=== PATIENT | female | born 1950 | race Caucasian/White ===

== ENCOUNTER → 2017-08-08 | Day surgery (SDC) | payer OTHER ==
[2017-08-05 13:27] LABS: BASOPHILS # (AUTO) 0.1 (0.0-0.1); BASOPHILS % 0.8 % (0.0-1.0); EOSINOPHILS # (AUTO) 0.1 (0.0-0.4); EOSINOPHILS % 0.7 % (0.0-6.0); HEMATOCRIT 39.7 % (34.2-44.1); HEMOGLOBIN 13.5 g/dL (12.0-16.0); LYMPHOCYTES # (AUTO) 2.4 (1.0-3.2); LYMPHOCYTES % 32.1 % (18.0-39.1); MEAN CORPUSCULAR HEMOGLOBIN 31.4 pg (28-32); MEAN CORPUSCULAR VOLUME 92.3 fL (81-99); MONOCYTES # (AUTO) 0.5 (0.2-0.8); MONOCYTES % 7.3 % (4.4-11.3); NEUTROPHILS # (AUTO) 4.3 (2.1-6.9); NEUTROPHILS % 58.8 % (38.7-80.0); PLATELET COUNT 281 x10e3/uL (140-360); RED CELL DISTRIBUTION WIDTH 12.4 % (11.7-14.4)
--- NOTE | 2017-08-05 13:50 | Diagnostic Imaging Report ---
PROCEDURE: Frontal and lateral views of the chest. COMPARISON: None. INDICATIONS: PREOP - TAILBONE CYST REMOVAL FINDINGS: Lines/tubes: None. Lungs: The lungs are well inflated and clear. There is no evidence of pneumonia or pulmonary edema. Pleura: There is no pleural effusion or pneumothorax. Heart and mediastinum: The heart and the mediastinum are normal. Bones: No acute bony abnormality. IMPRESSION: No acute cardiopulmonary disease. Dictated by: Rafa Dawkins M.D. on 08/05/2017 at 13:51 Electronically approved by: Rafa Dawkins M.D. on 08/05/2017 at 13:51
[~2017-08-08] MED LIST: ASPIR 8181 MG PO; ATORVASTATIN CA10 MG PO; ATORVASTATIN CA20 MG PO; ATROPINE SULFATE 1 MG/ML VIAL ONE; BUPIVACAINE 0.5%/EPI 30 ML SDV INJ ONE; CALCIUM CARBON500 MG PO; CEFAZOLIN SOD 2 GM/D5W 50ML 50 ML IV ONE; CENTRUM COMPLE1 EACH PO; CINNAMON500 MG PO; CO Q1060 MG PO; DEXAMETHASONE SOD PHOS INJ 4 MG/ML VIAL ONE; FENTANYL CITRATE/PF 100MCG/2 ML INJ ONE; KETOROLAC TROMETHAMINE 30 MG/ML VIAL ONE; KRILL OIL500 MG PO; LIDOCAINE HCL 2% LOCAL INJ 5 ML SDV VIAL INJ ONE; MIDAZOLAM HCL 2 MG/2 ML VIAL ONE; NEOSTIGMINE 5 MG/5ML SYR ONE; ONDANSETRON HCL INJ 2 MG/ML VIAL ONE; PANTOPRAZOLE SO40 MG PO; POTASSIUM PO; PROPOFOL IV EMULSION 10 MG/ML 20 ML VIAL ONE; ROCURONIUM BROMIDE 10 MG/ML 5ML VIAL ONE; SEVOFLURANE INHAL SOLN 250 ML PEN BTL ONE; VIT B12 PO
--- OUTSIDE RECORDS SUMMARY | 2017-08-08 05:29 | XMS REPORT ---
Author Author [facility] [place] [facility] Address Unknown Phone Unavailable Care Team Providers Care Co Founder And Chief Strategy Officer Name Role Phone BERNADETTE PATRICIO Unavailable Unavailable Problems This patient has no known problems. Allergies, Adverse Reactions, Alerts This patient has no known allergies or adverse reactions. Medications This patient has no known medications. Results Test Description Test Time Test Comments Text Results Atomic Results Result Comments CHEST 2 VIEWS [place] [id number] [place] [id number] Patient Name: YOLANDE JOHNS MR #: [id number] : 1950 Age/Sex: 66/F Req #: [id number] Adm Physician: Ordered by: TINO LAO MD Report #: [id number] Location: OR Room/Bed: Procedure: [id number] DX/CHEST 2 VIEWS Exam Date: 08/05/17 Exam Time: 1330 REPORT STATUS: Signed PROCEDURE: Frontal and lateral views of the chest. COMPARISON: None. INDICATIONS: PREOP - TAILBONE CYST REMOVAL FINDINGS: Lines/tubes: None. Lungs: The lungs are well inflated and clear. There is no evidence of pneumonia or pulmonary edema. Pleura: There is no pleural effusion or pneumothorax. Heart and mediastinum: The heart and the mediastinum are normal. Bones: No acute bony abnormality. IMPRESSION: No acute cardiopulmonary disease. Dictated by: Rafa Bautista M.D. on 08/05/2017 at 13:51 Electronically approved by: Rafa Bautista M.D. on 08/05/2017 at 13:51 Dictated By: RAFA BAUTISTA MD [id number] Transcribed By: LOC on 08/05/17 1351 COPY TO: TINO LAO III
--- NOTE | 2017-08-08 08:30 | Operative Report ---
DATE OF PROCEDURE: August 08, 2017 PREOPERATIVE DIAGNOSIS: Pilonidal cyst. POSTOPERATIVE DIAGNOSIS: Pilonidal cyst. PROCEDURE: Excision of pilonidal cyst with layered closure. CAMPUS EXECUTIVE DIRECTOR: None. ANESTHESIA: General. INDICATIONS AND FINDINGS: Patient is a 66-year-old female who has had recurrent infections of the sacral area. At surgery, there was erythematous skin with thickening in the area of the previous infection, which was excised. TECHNIQUE: After adequate general anesthesia with the patient in the prone position, the sacral area was prepped and draped in a sterile fashion with Jayce solution. A elliptical incision made was made horizontally encompassing the area of previous infection where the skin was erythematous. Excision was carried down to the presacral fascia. There was no granulation tissues seen. No signs of deep chronic infections. The wound was irrigated with saline and inspected for hemostasis, which was seen to be adequate. It was then infiltrated with 0.5% Marcaine with epinephrine. The wound was then closed in layers. The deeper subcutaneous tissue was closed with a running suture of 2-0 Vicryl. The more superficial subcutaneous tissue was also closed with a running suture of 2-0 Vicryl. Skin was closed with a running subcuticular suture of 4-0 Vicryl. Dermabond and sterile dressing were applied. The patient tolerated the procedure well. Estimated blood loss was 5 mL. There were no complications. All counts were correct. Patient was taken to the recovery room in satisfactory condition. Job#: [id number] RI cc:CARMEN MADISON DO
== END | disposition home or self-care (01) ==
LOC: OR 05:27
PROVIDERS: ATTEND Surgery
DX: L05.01 Pilonidal cyst with abscess (principal); E78.00 Pure hypercholesterolemia, unspecified; Z01.812 Encounter for preprocedural laboratory examination
CPT/HCPCS: 11771; 36415; 71046; 85025; 88304; 93005; J0461; J1100; J1885; J2001; J2250; J2405

== ENCOUNTER → 2021-08-24 | Day surgery (SDC) | payer BC ==
[2021-08-19 11:26] LABS: BASOPHILS # (AUTO) 0.1 (0.0-0.1); BASOPHILS % 1.8 % (0.0-1.0); EOSINOPHILS # (AUTO) 0.1 (0.0-0.4); EOSINOPHILS % 1.8 % (0.0-6.0); HEMATOCRIT 40.2 % (34.2-44.1); HEMOGLOBIN 13.1 g/dL (12.0-16.0); LYMPHOCYTES # (AUTO) 2.5 (1.0-3.2); LYMPHOCYTES % 46.3 % (18.0-39.1); MEAN CORPUSCULAR HEMOGLOBIN 31.5 pg (28-32); MEAN CORPUSCULAR HGB CONC 32.6 g/dL (31-35); MEAN CORPUSCULAR VOLUME 96.6 fL (81-99); MONOCYTES # (AUTO) 0.4 (0.2-0.8); MONOCYTES % 6.8 % (4.4-11.3); NEUTROPHILS # (AUTO) 2.4 (2.1-6.9); NEUTROPHILS % 43.1 % (38.7-80.0); PLATELET COUNT 264 x10e3/uL (140-360); RED BLOOD COUNT 4.16 x10e6/uL (3.6-5.1); RED CELL DISTRIBUTION WIDTH 11.9 % (11.7-14.4)
[2021-08-19 11:36] LABS: INR 0.94; PROTHROMBIN TIME 13.4 seconds (11.9-14.5)
[2021-08-19 11:37] LABS: PARTIAL THROMBOPLASTIN TIME 28.7 seconds (23.8-35.5)
[2021-08-19 11:43] LABS: ANION GAP 12.6 mmol/L (8-16); CALCIUM 10.1 mg/dL (8.4-10.2); CREATININE, SERUM 0.81 mg/dL (0.57-1.11); POTASSIUM 4.6 mmol/L (3.5-5.1)
[~2021-08-24] MED LIST changes: -ATROPINE SULFATE 1 MG/ML VIAL ONE; +BETAMETHASONE DISODIUM PHOS 6 MG/ML VIAL ONE; -BUPIVACAINE 0.5%/EPI 30 ML SDV INJ ONE; +BUPIVACAINE HCL 0.5% 10ML MPF VIAL INJ ONE; -CEFAZOLIN SOD 2 GM/D5W 50ML 50 ML IV ONE; +CRESTOR10 MG PO; +DEXAMETHASONE SOD PHOS INJ 4 MG/ML SDV ONE; -DEXAMETHASONE SOD PHOS INJ 4 MG/ML VIAL ONE; -FENTANYL CITRATE/PF 100MCG/2 ML INJ ONE; +GLYCOPYRROLATE INJ 0.2 MG/ML VIAL ONE; +LIDOCAINE HCL 1% LOCAL INJ 20 ML VIAL ONE; +LISINOPRIL10 MG PO; +MAGNESIUM100 MG; -MIDAZOLAM HCL 2 MG/2 ML VIAL ONE; +MUPIROCIN 2% OINT 22 GM TUBE ONE; +NEOSTIGMINE 1 MG/ML 10ML VIAL ONE; -NEOSTIGMINE 5 MG/5ML SYR ONE; -ONDANSETRON HCL INJ 2 MG/ML VIAL ONE; +ONDANSETRON HCL INJ 2MG/ML 2ML 2 MG/ML VIAL ONE; +POVIDONE IODINE 0.05% 0.05 % ML PO ONE; +ROCURONIUM BROMIDE 10 MG/ML 5ML VIAL IV ONE; -ROCURONIUM BROMIDE 10 MG/ML 5ML VIAL ONE
[2021-08-24 09:30] VITALS: BP 150/76
== END | disposition home or self-care (01) ==
LOC: OR 05:36
PROVIDERS: ATTEND Podiatrist Foot Surgery
DX: M24.571 Contracture, right ankle (principal); M20.11 Hallux valgus (acquired), right foot; M77.31 Calcaneal spur, right foot; M20.41 Other hammer toe(s) (acquired), right foot; I10 Essential (primary) hypertension; E78.5 Hyperlipidemia, unspecified; Z91.040 Latex allergy status; Z91.048 Other nonmedicinal substance allergy status; Z01.810 Encounter for preprocedural cardiovascular examination; Z01.812 Encounter for preprocedural laboratory examination; Z01.818 Encounter for other preprocedural examination; Z20.822 Contact with and (suspected) exposure to COVID-19; Z79.82 Long term (current) use of aspirin; Z79.899 Other long term (current) drug therapy
CPT/HCPCS: 27685; 28118; 28285 ×2; 28292; 36415; 71046; 73620; 80048; 85025; 85610; 85730; 93005; C1713 ×3; J0690; J0720; J1100; J1885; J2001 ×2; J2405; J2704; J2710; U0002

== ENCOUNTER 2024-04-23 19:44 | Emergency (ER) | payer BC, MEDICARE ==
[~2024-04-23] VITALS: Ht 162.6 cm; Wt 71.2 kg
[~2024-04-23 19:44] MED LIST changes: -BETAMETHASONE DISODIUM PHOS 6 MG/ML VIAL ONE; -BUPIVACAINE HCL 0.5% 10ML MPF VIAL INJ ONE; -DEXAMETHASONE SOD PHOS INJ 4 MG/ML SDV ONE; -GLYCOPYRROLATE INJ 0.2 MG/ML VIAL ONE; -KETOROLAC TROMETHAMINE 30 MG/ML VIAL ONE; -LIDOCAINE HCL 1% LOCAL INJ 20 ML VIAL ONE; -LIDOCAINE HCL 2% LOCAL INJ 5 ML SDV VIAL INJ ONE; -MUPIROCIN 2% OINT 22 GM TUBE ONE; -NEOSTIGMINE 1 MG/ML 10ML VIAL ONE; -ONDANSETRON HCL INJ 2MG/ML 2ML 2 MG/ML VIAL ONE; -POVIDONE IODINE 0.05% 0.05 % ML PO ONE; -PROPOFOL IV EMULSION 10 MG/ML 20 ML VIAL ONE; -ROCURONIUM BROMIDE 10 MG/ML 5ML VIAL IV ONE; -SEVOFLURANE INHAL SOLN 250 ML PEN BTL ONE
[2024-04-23 20:02] VITALS: PULSE 89; RESP 16; TEMP 98.7
[2024-04-23 20:36] LABS: BASOPHILS # (AUTO) 0.1 (0.0-0.1); BASOPHILS % 1.3 % (0.0-1.0); EOSINOPHILS # (AUTO) 0.1 (0.0-0.4); EOSINOPHILS % 1.4 % (0.0-6.0); HEMATOCRIT 38.1 % (34.2-44.1); HEMOGLOBIN 12.1 g/dL (12.0-16.0); LYMPHOCYTES # (AUTO) 3.2 (1.0-3.2); LYMPHOCYTES % 57.8 % (18.0-39.1); MEAN CORPUSCULAR HEMOGLOBIN 31.4 pg (28-32); MEAN CORPUSCULAR HGB CONC 31.8 g/dL (31-35); MONOCYTES # (AUTO) 0.5 (0.2-0.8); MONOCYTES % 8.5 % (4.4-11.3); NEUTROPHILS # (AUTO) 1.7 (2.1-6.9); NEUTROPHILS % 30.8 % (38.7-80.0); PLATELET COUNT 284 x10e3/uL (140-360); RED BLOOD COUNT 3.85 x10e6/uL (3.6-5.1); RED CELL DISTRIBUTION WIDTH 11.9 % (11.7-14.4); WHITE BLOOD COUNT 5.52 x10e3/uL (4.8-10.8)
[2024-04-23 20:51] LABS: ALBUMIN 4.4 g/dL (3.5-5.0); ALBUMIN/GLOBULIN RATIO 1.5 (0.8-2.0); ANION GAP 15.2 mmol/L (8-16); BILIRUBIN,TOTAL 0.7 mg/dL (0.2-1.2); CALCIUM 9.9 mg/dL (8.4-10.2); CREATININE, SERUM 0.86 mg/dL (0.57-1.11); POTASSIUM 4.2 mmol/L (3.5-5.1); TOTAL PROTEIN 7.4 g/dL (6.5-8.1)
[2024-04-23] MEDS: SODIUM CHLORIDE 0.9% 1000ML 1,000 ML IV STA (21:00)
[2024-04-23] MEDS: ONDANSETRON HCL 4 MG ORAL DISINTEGRATING TAB PO STA (21:00)
[2024-04-23] MEDS: KETOROLAC TROMETHAMINE 30 MG/ML VIAL IV STA (21:01)
[2024-04-23 22:22] VITALS: BP 136/66; O2SAT 100
== END 2024-04-23 22:25 | disposition home or self-care (01) ==
LOC: ER 19:48
DX: R10.32 Left lower quadrant pain (principal); I10 Essential (primary) hypertension; E78.5 Hyperlipidemia, unspecified; E78.00 Pure hypercholesterolemia, unspecified; K21.9 Gastro-esophageal reflux disease without esophagitis
CPT/HCPCS: 36415; 74176; 80053; 83690; 85025; 99284; J1885; J7030; Q0162